=== PATIENT | male | born 1955 ===

== ENCOUNTER 2022-01-04 01:19 | Emergency (ER) | payer SELFPAY ==
[2022-01-04 01:53] VITALS: BP 138/90
== END 2022-01-04 04:51 | disposition left against medical advice (07) ==
LOC: ED 01:19
DX: Z04.1 Encounter for examination and observation following transport accident (principal); Z53.21 Procedure and treatment not carried out due to patient leaving prior to being seen by health care provider; V89.2XXA Person injured in unspecified motor-vehicle accident, traffic, initial encounter; Y93.89 Activity, other specified; Y92.89 Other specified places as the place of occurrence of the external cause; Y99.8 Other external cause status